=== PATIENT | female | born 1940 | race Caucasian/White ===

== ENCOUNTER 2017-03-12 10:58 | Emergency (ER) | payer MEDICARE ==
[2017-03-12 12:05] LABS: #Basophils 0.1 thou/uL (0.0-0.2); #Eosinphils 0.1 thou/uL (0.0-0.7); #Lymphocytes 1.6 thou/uL (1.20-3.40); #Monocytes 0.9 thou/uL (0.11-0.59); #Neutrophils 5.8 thou/uL (1.40-6.50); %Basophils 0.8 % (0.0-1.0); %Eosinophils 1.3 % (0.0-10.0); %Lymphocytes 18.9 % (21.0-51.0); %Monocytes 10.3 % (0.0-10.0); Macrocytosis SLIGHT = 6-15 cells (100X) (0-5/hpf); Mean Platelet Volume 6.9 fL (7.4-10.4); Red Blood Cell (RBC) Count 4.27 mill/uL (4.20-5.40); White Blood Cell (WBC) Count 8.5 thou/uL (4.8-10.8)
[2017-03-12 12:12] LABS: ALT (SGPT) 13 U/L (8-55); AST (SGOT) 22 U/L (5-34); Alkaline Phosphatase 52 U/L (40-150); Anion Gap 14 mmol/L (10-20); BUN (Urea Nitrogen) 23 mg/dL (9.8-20.1); Bilirubin, Total 0.6 mg/dL (0.2-1.2); CK (CPK) 41 U/L (29-168); Calc. Creatinine Clearance 0 mL/min (70-130); Calcium 9.8 mg/dL (7.8-10.44); Carbon Dioxide 25 mmol/L (23-31); Chloride 104 mmol/L (98-107); Estimated GFR-MDRD 53; Globulin 3.3 g/dL (2.4-3.5); Protein, Total 7.2 g/dL (6.0-8.3)
[2017-03-12 12:15] LABS: Troponin I 0.022 ng/mL (< 0.028)
[2017-03-12] MEDS ORDERED: Pantoprazole 40 MG VIAL ONE ×2 (12:44→12:45)
[2017-03-12] MEDS ORDERED: Fentanyl 100 MCG/2 ML VIAL ONE (13:13)
--- NOTE | 2017-03-12 13:28 | RAD ---
AP VIEW CHEST: Date: 03/12/17 HISTORY: Abdominal pain. FINDINGS: Comparison made to previous exam from 10/17/16. AP view of chest demonstrates a large hiatal hernia. Surgical clips seen in the left axillary region. Cardiomegaly is noted. No evidence of effusions, pneumonia or pneumothorax seen. IMPRESSION: Large hiatal hernia. No acute intrathoracic abnormality seen. POS: [facility]
[2017-03-12] MEDS ORDERED: ISOVUE-370 76%-LOCM 1 ML ONE (13:48)
--- NOTE | 2017-03-12 14:15 | ULT ---
RIGHT UPPER QUADRANT ULTRASOUND: Date: 03/12/17 HISTORY: Abdominal pain. TECHNIQUE: Multiple longitudinal and transverse images of the right upper quadrant of the abdomen obtained using a multihertz curvilinear transducer. Real-time and color flow images obtained. FINDINGS: The liver is unremarkable with no evidence of hepatic parenchymal masses seen. The left hepatic lobe is suboptimally visualized. No evidence of intrahepatic biliary dilatation is seen. Common bile duct is of normal size measuring 4.8 mm. No evidence of intrahepatic biliary dilatation is seen. The gallb ladder contains numerous echogenic foci compatible with extensive cholelithiasis. No definite evidenc e of gallbladder wall thickening is seen. No evidence of pericholecystic fluid is seen. The gallbladd er is not visualized due to overlying bowel gas. The right kidney is of normal contour, although some what small in size measuring 9.2 cm from pole to pole. IMPRESSION: Cholelithiasis. POS: [facility]
--- NOTE | 2017-03-12 14:50 | CT ---
CONTRAST ENHANCED CTA AORTA: Date: 03/12/17 HISTORY: Epigastric pain. History of dementia. FINDINGS: Contrast enhanced CTA of the chest is performed. 2D and 3D reconstructed images performed. Images demonstrate a large hiatal hernia. There is abnormal dilatation of the esophagus with air flui d levels all the way into the upper thoracic esophagus. No definite evidence of mediastinal lymphadenopathy is seen. Coronary artery calcifications seen. Lorne e diffuse patchy air space and ground-glass opacities seen in both upper lobes and some more subtle a reas seen in the lower lobes. This may represent possible pulmonary edema or pneumonia. No evidence of aortic dissections or aneurysms seen. Atherosclerotic calcification of the descending thoracic aorta is seen. ABDOMEN: Atherosclerotic calcifications seen in the right and left renal arteries. There are some calcificatio ns also seen in the SMA and celiac arteries. There is extensive multilevel S-shaped lumbar degenerative changes with multilevel disc desiccation. Multilevel mid and lower lumbar spinal stenosis is seen. IMPRESSION: 1. No evidence of aortic dissection or aneurysms. 2. Large hiatal hernia with abnormally dilated esophagus. 3. Diffuse multilobar areas of air space opacities concerning for possible pneumonia. 4. Coronary artery calcifications. POS: [facility]
[2017-03-12 15:07] LABS: Bilirubin Negative (Negative); Blood, Urine Negative (Negative); Glucose, Urine (Dipstick) Negative (Negative); Ketone, Urine Negative (Negative); Nitrite Negative (Negative); Protein, Urine (Dipstick) Negative (Neg-Trace)
[2017-03-12 15:34] LABS: PTT 32.7 SEC (22.9-36.1); Prothrombin Time 21.7 SEC (12.0-14.7)
[2017-03-12] MEDS ORDERED: Clindamycin 150 MG CAP PO SCH (15:45)
[2017-03-12 18:14] LABS: Troponin I 0.013 ng/mL (< 0.028)
== END 2017-03-12 17:00 | disposition home or self-care (01) ==
LOC: ERS 10:58
DX: K20.9 Esophagitis, unspecified (principal); J69.0 Pneumonitis due to inhalation of food and vomit; E86.0 Dehydration; I10 Essential (primary) hypertension; E03.9 Hypothyroidism, unspecified; G30.9 Alzheimer's disease, unspecified; M81.0 Age-related osteoporosis without current pathological fracture; F41.9 Anxiety disorder, unspecified; F32.9 Major depressive disorder, single episode, unspecified; Z79.899 Other long term (current) drug therapy; Z79.82 Long term (current) use of aspirin; Z79.01 Long term (current) use of anticoagulants
CPT/HCPCS: 36415; 51701; 71010; 71275; 76705; 80053; 81003; 82274; 82550; 82553; 84484; 85025; 85379; 85610; 85730; 93005; 96361; 96374; 96375; A4353; C9113; J3010

== ENCOUNTER 2017-08-12 07:36 | Emergency (ER) | payer MEDICARE ==
[2017-08-12 08:13] LABS: #Basophils 0.1 thou/uL (0.0-0.2); #Eosinphils 0.2 thou/uL (0.0-0.7); #Lymphocytes 1.6 thou/uL (1.20-3.40); #Monocytes 0.9 thou/uL (0.11-0.59); #Neutrophils 4.5 thou/uL (1.40-6.50); %Basophils 0.8 % (0.0-1.0); %Eosinophils 2.2 % (0.0-10.0); %Lymphocytes 22.3 % (21.0-51.0); %Neutrophils 62.8 % (42.0-75.0); Hemoglobin 13.3 g/dL (12.0-16.0); Mean Corpuscular HGB CONC 33.9 g/dL (32.0-36.0); Mean Corpuscular Hemoglobin 34.6 pg (27.0-31.0); Mean Platelet Volume 6.9 fL (7.4-10.4); Platelet Count 183 thou/uL (130-400); Red Blood Cell (RBC) Count 3.83 mill/uL (4.20-5.40); White Blood Cell (WBC) Count 7.1 thou/uL (4.8-10.8)
[2017-08-12 08:19] LABS: INR-International Normal Ratio 1.5; Prothrombin Time 18.2 SEC (12.0-14.7)
[2017-08-12 08:33] LABS: ALT (SGPT) 10 U/L (8-55); AST (SGOT) 21 U/L (5-34); Albumin 3.6 g/dL (3.4-4.8); Alkaline Phosphatase 43 U/L (40-150); Anion Gap 6 mmol/L (10-20); BUN (Urea Nitrogen) 21 mg/dL (9.8-20.1); Bilirubin, Total 0.6 mg/dL (0.2-1.2); Calc. Creatinine Clearance 0 mL/min (70-130); Calcium 9.3 mg/dL (7.8-10.44); Carbon Dioxide 32 mmol/L (23-31); Chloride 106 mmol/L (98-107); Estimated GFR-MDRD 61; Glucose 92 mg/dL (83-110); Potassium 3.9 mmol/L (3.5-5.1); Protein, Total 6.6 g/dL (6.0-8.3); Sodium 140 mmol/L (136-145)
[2017-08-12 08:36] LABS: CKMB 1.1 ng/mL (0-6.6); Troponin I Less than 0.010 ng/mL (< 0.028)
[2017-08-12 08:43] LABS: Bilirubin Negative (Negative); Blood, Urine Negative (Negative); Clarity CLOUDY (Clear); Glucose, Urine (Dipstick) Negative (Negative); Leukocyte Negative (Negative); Nitrite Negative (Negative); Protein, Urine (Dipstick) Negative (Neg-Trace); Specific Gravity, Urine 1.016 (1.002-1.036)
--- NOTE | 2017-08-12 09:39 | RAD ---
PORTABLE UPRIGHT FRONTAL CHEST RADIOGRAPH: DATE: 08/12/17. COMPARISON: 03/12/17. History Syncope, fall, loss of consciousness. FINDINGS: Atherosclerotic calcification and tortuosity of the aorta noted. There is no pneumothorax, pleural f luid, focal consolidation, or alveolar edema. Increased density at the diaphragmatic hiatus suggests a hiatal hernia, not optimally characterized on this exam. There is levoscoliosis at the thoracolumbar junction. IMPRESSION: Chronic findings as above. POS: [facility]
--- NOTE | 2017-08-12 09:43 | CT ---
HEAD CT WITHOUT CONTRAST: DATE: 08/12/17. COMPARISON: 10/17/16. HISTORY: Syncope, fall, head trauma. TECHNIQUE: Serial axial CT imaging at 5 mm intervals from vertex through the skull base without contrast. FINDINGS: There is a focal area of midline frontal scalp swelling with a foal subcutaneous hematoma on image 17 measuring 1.9 cm. Soft tissue swelling extends inferiorly into the supraorbital region on the left. There is partial opacification of posterior ethmoid air cells on the right. Imaged paranasal sinuses /mastoid air cells appear grossly unremarkable otherwise. No displaced calvarial fracture. No intracranial hemorrhage, midline shift, or mass effect. There is diffuse mild cerebral volume los s. There is periventricular hypodensity, evidence of small-vessel disease. IMPRESSION: Frontal scalp swelling consistent with a recent fall and head trauma. No associated fracture or intr acranial hemorrhage. POS: [facility]
== END 2017-08-12 09:14 | disposition home or self-care (01) ==
LOC: ERS 07:36
DX: S00.81XA Abrasion of other part of head, initial encounter (principal); G30.9 Alzheimer's disease, unspecified; F02.80 Dementia in other diseases classified elsewhere, unspecified severity, without behavioral disturbance, psychotic disturbance, mood disturbance, and anxiety; I10 Essential (primary) hypertension; E03.9 Hypothyroidism, unspecified; M81.0 Age-related osteoporosis without current pathological fracture; F41.9 Anxiety disorder, unspecified; F32.9 Major depressive disorder, single episode, unspecified; Z79.82 Long term (current) use of aspirin; Z79.899 Other long term (current) drug therapy; Z79.01 Long term (current) use of anticoagulants; W19.XXXA Unspecified fall, initial encounter
CPT/HCPCS: 36415; 51701; 70450; 71045; 80053; 81003; 82553; 84484; 85025; 85610; 93005; A4353

== ENCOUNTER 2018-03-04 20:39 | Emergency (ER) | payer MEDICARE, SELFPAY ==
[2018-03-04 21:14] LABS: #Basophils 0.1 thou/uL (0.0-0.2); #Eosinphils 0.1 thou/uL (0.0-0.7); #Lymphocytes 1.9 thou/uL (1.20-3.40); #Monocytes 1.1 thou/uL (0.11-0.59); #Neutrophils 8.5 thou/uL (1.40-6.50); %Basophils 0.6 % (0.0-1.0); %Monocytes 9.5 % (0.0-10.0); %Neutrophils 72.9 % (42.0-75.0); Hemoglobin 14.7 g/dL (12.0-16.0); Mean Corpuscular HGB CONC 33.2 g/dL (32.0-36.0); Mean Corpuscular Hemoglobin 34.1 pg (27.0-31.0); Mean Platelet Volume 7.5 fL (7.4-10.4); Platelet Count 204 thou/uL (130-400); RBC Distribution Width 12.3 % (11.5-14.5); White Blood Cell (WBC) Count 11.6 thou/uL (4.8-10.8)
[2018-03-04 21:38] LABS: ALT (SGPT) 17 U/L (8-55); AST (SGOT) 33 U/L (5-34); Albumin 3.8 g/dL (3.4-4.8); Alkaline Phosphatase 47 U/L (40-150); Anion Gap 13 mmol/L (10-20); BUN (Urea Nitrogen) 22 mg/dL (9.8-20.1); Bilirubin, Total 0.4 mg/dL (0.2-1.2); CK (CPK) 49 U/L (29-168); Calc. Creatinine Clearance 0 mL/min (70-130); Calcium 10.1 mg/dL (7.8-10.44); Carbon Dioxide 25 mmol/L (23-31); Chloride 105 mmol/L (98-107); Estimated GFR-MDRD 43; Globulin 3.3 g/dL (2.4-3.5); Glucose 141 mg/dL (83-110); Lipase 19 U/L (8-78); Protein, Total 7.1 g/dL (6.0-8.3); Sodium 139 mmol/L (136-145)
--- NOTE | 2018-03-04 21:50 | RAD ---
RADIOGRAPH CHEST 1 VIEW: Date: 03-04-18 Time: 8:58 P.M. HISTORY: 78-year-old female with chest pain. COMPARISON: 08-12-17 FINDINGS: Cardiomegaly. Large retrocardiac gas-containing mass. Diffusely prominent interstitial markings. No c onsolidation or pneumothorax. No effacement of lateral costophrenic angles. No interval change. IMPRESSION: 1. Large hiatal hernia. 2. Cardiomegaly. MADELIN POS: [facility]
[2018-03-04 22:32] LABS: Bilirubin Negative (Negative); Blood, Urine Negative (Negative); Clarity CLEAR (Clear); Glucose, Urine (Dipstick) Negative (Negative); Leukocyte Negative (Negative); Nitrite Negative (Negative); Protein, Urine (Dipstick) Negative (Neg-Trace); Specific Gravity, Urine 1.019 (1.002-1.036)
--- NOTE | 2018-03-06 14:16 | EKG ---
Test Reason : Blood Pressure : / mmHG Vent. Rate : 072 BPM Atrial Rate : 300 BPM P-R Int : 000 ms QRS Dur : 088 ms QT Int : 406 ms P-R-T Axes : 084 -26 -05 degrees QTc Int : 444 ms Atrial flutter with variable A-V block with premature ventricular or aberrantly conducted complexes Minimal voltage criteria for LVH, may be normal variant Anterior infarct , age undetermined Abnormal ECG Confirmed by ZOYA VELASQUEZ, ELVA (12), editorial intern MATILDE HERRERA ([id number]) on 03/06/2018 2:15:48 PM Referred By: Confirmed By:ELVA KENNY MD
== END 2018-03-04 22:54 ==
LOC: ERS 20:39
DX: K21.9 Gastro-esophageal reflux disease without esophagitis (principal); I10 Essential (primary) hypertension; G30.9 Alzheimer's disease, unspecified; E03.9 Hypothyroidism, unspecified; M81.0 Age-related osteoporosis without current pathological fracture; F41.9 Anxiety disorder, unspecified; F32.9 Major depressive disorder, single episode, unspecified; Z79.82 Long term (current) use of aspirin; Z79.899 Other long term (current) drug therapy; Z79.01 Long term (current) use of anticoagulants
CPT/HCPCS: 36415; 51701; 71045; 80053; 81003; 82550; 83690; 83880; 84484; 85025; 87086; 93005; 96360; A4353

== ENCOUNTER 2018-08-16 12:09 | Inpatient (IN) | payer MEDICARE ==
--- NOTE | 2018-08-16 12:38 | RAD ---
EXAM: Single view of the chest HISTORY: Dyspnea COMPARISON: 03/04/2018 FINDINGS: Single view of the chest shows an enlarged but stable cardiomediastinal silhouette. Increa sed interstitial markings are present. There may be superimposed airspace opacities scattered throughout the lungs. No pleural effusion is seen. Degenerative changes are seen in the spine. IMPRESSION: Multifocal infiltrates
[2018-08-16] MEDS ORDERED: Gentamicin Sulfate 340 MG in Sodium Chloride 0.9% 100 ML IVPB SCH (13:15)
[2018-08-16] MEDS ORDERED: Piperacillin/Tazobactam 4.5 GM VIAL ONE (13:30)
[2018-08-16 13:36] LABS: Hemoglobin 10.4 g/dL (12.0-16.0); Mean Corpuscular HGB CONC 32.1 g/dL (32.0-36.0); Mean Corpuscular Hemoglobin 34.6 pg (27.0-31.0); Mean Platelet Volume 7.5 fL (7.4-10.4); Platelet Count 400 thou/uL (130-400); RBC Distribution Width 13.9 % (11.5-14.5); Red Blood Cell (RBC) Count 3.01 mill/uL (4.20-5.40); White Blood Cell (WBC) Count 24.1 thou/uL (4.8-10.8)
[2018-08-16 13:52] LABS: Band 7 % (5-11); Lymphocytes 15 % (21-51); MDiff Complete? YES; Macrocytosis SLIGHT = 6-15 cells (100X) (0-5/hpf); Neutrophil 78 % (42-75); Ovalocytes SLIGHT = 2-5 cells (100X) (0-1/hpf); Platelet Morphology Comment Appears Adequate; Polychromasia MODERATE = 3-4 cells (100X) (0-2/hpf)
[2018-08-16 14:04] LABS: Bilirubin Small (Negative); Blood, Urine Small (Negative); Clarity TURBID (Clear); Glucose, Urine (Dipstick) Negative (Negative); Leukocyte Small (Negative); Protein, Urine (Dipstick) 30 mg/dL (Neg-Trace); Specific Gravity, Urine 1.023 (1.002-1.036)
[2018-08-16 14:06] LABS: ALT (SGPT) 29 U/L (8-55); AST (SGOT) 87 U/L (5-34); Albumin 2.8 g/dL (3.4-4.8); Alkaline Phosphatase 61 U/L (40-150); Anion Gap 16 mmol/L (10-20); BUN (Urea Nitrogen) 31 mg/dL (9.8-20.1); Bilirubin, Total 2.5 mg/dL (0.2-1.2); Calc. Creatinine Clearance 0 mL/min (70-130); Calcium 8.3 mg/dL (7.8-10.44); Carbon Dioxide 18 mmol/L (23-31); Chloride 108 mmol/L (98-107); Estimated GFR-MDRD 63; Globulin 2.9 g/dL (2.4-3.5); Glucose 135 mg/dL (83-110); Potassium 4.2 mmol/L (3.5-5.1); Protein, Total 5.7 g/dL (6.0-8.3); Sodium 138 mmol/L (136-145)
[2018-08-16 14:23] LABS: Nitrite Unable to Interpret (Negative)
[2018-08-16 14:27] LABS: RBC/HPF 0-3 HPF (0-3)
[2018-08-16 14:28] LABS: Bacteria/HPF 4+ HPF (None Seen); Hyaline Casts/LPF 0-3 HYALINE CAST LPF (0-3 Hyaline)
[2018-08-16 15:17] LABS: PTT 104.2 SEC (22.9-36.1); Prothrombin Time 88.4 SEC (12.0-14.7)
[2018-08-16 15:26] LABS: INR-International Normal Ratio 11.5
[2018-08-16] MEDS ORDERED: Sodium Chloride 0.9% 1,000 ML IV SCH (15:46)
[2018-08-16] MEDS ORDERED: Ondansetron PF 4 MG/2 ML Vial IVP PRN (15:46)
[2018-08-16] MEDS ORDERED: Ondansetron ODT 4 MG TAB SL PRN (15:46)
[2018-08-16] MEDS ORDERED: HYDROcodone/Acetaminophen 5/325 mg Tablet PO PRN ×2 (15:46)
[2018-08-16 16:02] VITALS: BMI 22.8
[2018-08-16] MEDS ORDERED: Furosemide 40 MG/4 ML VIAL SLOW IVP SCH (16:30)
[2018-08-16 17:45] LABS: Lactic Acid 2.5 mmol/L (0.5-2.2)
[2018-08-16 17:51] LABS: Actual Bicarbonate (HCO3a) 17.6 mEq/L (22-28); Analyzer IN Cardio OR; Base Excess (BEa) -4.4 mEq/L (-2.0 to +3.0); Calcium, Ionized 1.13 mmol/L (1.12-1.30); Carboxyhemoglobin (COHb) 1.3 gm% (0.0-3.0); Hemoglobin (Hb) 11.6 g/dL (12.0-16.0); O2 Tension (PaO2) 160.1 mmHg (> 60.0); Potassium - ABG Lab 4.25 mmol/L (3.70-5.30); pH, Arterial 7.48 (7.35-7.45)
[2018-08-16 17:52] LABS: CO2 Tension 23.9 mmHg (35.0-45.0)
[2018-08-16 17:53] LABS: ALV-art Gradient 523.025 (0-20); Puncture Site LR
[2018-08-16] MEDS ORDERED: Piperacillin/Tazobactam 4.5 GM in Sodium Chloride 0.9% 100 ML IVPB SCH ×2 (18:00→19:00)
[2018-08-16] MEDS ORDERED: Sodium Chloride 0.45% 1,000 ML IV SCH (18:45)
[2018-08-16] MEDS ORDERED: Phytonadione 10 MG/ML AMP IM SCH (18:45)
[2018-08-16] MEDS ORDERED: Cefepime 1 GM in Sodium Chloride 0.9% 100 ML IVPB SCH (20:00)
[2018-08-16] MEDS ORDERED: Morphine 4 MG/ML VIAL SLOW IVP PRN (20:14)
[2018-08-16] MEDS ORDERED: diphenhydrAMINE 50 MG/ML VIAL IVP PRN (20:14)
[2018-08-16] MEDS ORDERED: Vancomycin HCl 1 GM in Premix Bag 1 BAG IVPB SCH (21:00)
--- NOTE | 2018-08-16 23:57 | CON ---
DATE OF CONSULTATION: 08/16/2018 INDICATION FOR CONSULTATION: This is an 78-year-old female who was admitted after having increasing shortness of breath. She is admitted with a diagnosis of pneumonia. She has multiple areas of infiltrates. She also had an elevated BNP compatible with most likely congestive heart failure. She did undergo an echocardiogram back in 2017, which showed severe aortic valve stenosis with a gradient across the valve of 100 mmHg. She has been remained apparently relatively stable, has not had any significant problems until she became short of breath at this time and most likely has a combination of pneumonia plus congestive heart failure. She also has a history in the past of some diastolic dysfunction and most likely has combined systolic and diastolic heart failure with elevated PA pressures also in the past and pulmonary hypertension. She is pretty much wheelchair bound and does not do any significant activity and most likely has remained relatively stable. At this time, she appears to be pale. She is mildly diaphoretic. Her blood pressure is slightly hypotensive. She was given diuretics in the emergency room. She appeared also to be somewhat acidotic. Looking at the laboratory reports, it appears that she has elevated liver function studies, most likely due to stasis associated with congestive heart failure. Also, she has been on Coumadin for her chronic atrial fibrillation and her INR was significantly elevated. She is having further problems with difficulty breathing. We will ask for the stat echocardiogram for further evaluation at this time. PAST MEDICAL HISTORY: Significant for dementia. She has Alzheimer disease, hypertension, hypothyroidism. She has had a history of pericarditis in the past. She has osteoporosis. She has severe aortic valve stenosis. She has anxiety and depression. SOCIAL HISTORY: There is history of alcohol or tobacco abuse. She has apparently no family member. She is taken care of by a friend, but she is actually in the jail. She has no history of tobacco abuse. ALLERGIES: SHE IS ALLERGIC TO MORPHINE APPARENTLY. PRESENT MEDICATIONS: Included alendronate, aspirin, donepezil, fenofibrate, gabapentin, levothyroxine, magnesium, oxybutynin, trazodone, metoprolol 25 mg half a tab b.i.d., Namenda one tab b.i.d. She has also been on Coumadin. REVIEW OF SYSTEMS: Not obtainable. PHYSICAL EXAMINATION: GENERAL: Reveals an elderly, very ill-appearing female who is tachypneic. VITAL SIGNS: Her blood pressure is 108/80, heart rate 103, appears to be irregular, respiratory rate is 18, O2 saturation is 100% on a 2 L of oxygen. She is afebrile. HEENT: Shows head to be normocephalic. She does appear to be pale. I cannot hear carotid bruits. CHEST: She has bilateral diffuse rales. CARDIOVASCULAR: She has tachycardia, somewhat irregular rhythm. She has a very harsh systolic murmur of the aortic area compatible with aortic valve stenosis. ABDOMEN: Obese with positive bowel sounds are present. I cannot elicit any tenderness. EXTREMITIES: Showed 2+ lower extremity edema. I cannot palpate pedal pulses. NEUROLOGICAL: The patient obviously is confused, demented and does not give much information. She denies any chest pain, but does say she is short of breath. She has no pain otherwise either. SKIN: Her skin is slightly clammy at this time. LABORATORY DATA: Shows a WBC of 24.1, hemoglobin was 10.4, platelet count of 400,000, hematocrit was 32.4. Chemistry, she has a chloride of 108. Sodium was 138, potassium 4.2, creatinine 0.86 with a BUN of 31. Lactic acid is 2.9. AST was 87. Her BNP was 2755. Urinalysis shows 4+ bacteria in the urine. IMPRESSION: 1. Congestive heart failure with superimposed pneumonia. She has been placed on antibiotics. She has also been given diuretics in the emergency room. We are uncertain of the urine output. We will need to adjust that. She does appear to be dehydrated at this time also despite having an elevated BNP. She most likely has decreased cardiac output due to aortic valve stenosis. We will obtain a stat echocardiogram. 2. History of aortic valve stenosis. We will repeat the echocardiogram. She is not a candidate at this time to undergo any interventions. 3. History of hypertension. This is obviously stable at this time. 4. What appears to be urinary tract infection. She has been placed on antibiotics. Renal function still remains normal. 5. Pneumonia. She may need to be seen by the water mechanic for assistance into the care or with Infectious Disease. At this time, this is a very ill-appearing female who may need to be transferred to the intensive care unit for further evaluation and treatment for close observation and medical management. She is apparently a do not resuscitate patient. We will be more than happy to continue to follow the patient with you and further recommendations will depend on the results of the echocardiogram and how she progresses with diuretics. Job ID: [id number]
--- NOTE | 2018-08-17 00:45 | HP ---
CHIEF COMPLAINT: Shortness of breath, not doing well. HISTORY OF PRESENT ILLNESS: Ms. Goldberg is an 78-year-old female with past medical history of chronic atrial fibrillation, dementia, hypertension, hypothyroidism, started having breathing problems today. She was in obvious respiratory distress at the senior care. The patient also had elevated PT/INR. This was reported a day before, but according to the senior care staff, she was doing well until this morning. She did not complain of any chest pain, only complained of shortness of breath. She did not have any fever either. No nausea or vomiting. The patient was transferred to the emergency room, where she was evaluated and found to have sepsis with possible bilateral pneumonia. She was given vancomycin, Zosyn, and gentamicin. After admission to the floor, the patient became more hypoxic and more tachypneic. She was given Lasix for suspected CHF and she was put on Ventimask on the floor. The patient also has atrial fibrillation. Her rate is around 100 to 110 and Cardiology is being consulted as well. PAST MEDICAL HISTORY: 1. Dementia. 2. Hypertension. 3. Hypothyroidism. 4. Chronic atrial fibrillation. 5. History of rectal prolapse. 6. Hyperlipidemia. 7. History of pericarditis. 8. History of pneumonia. 9. Severe aortic stenosis. 10. Pulmonary hypertension. 11. Echo done in 2017. PAST SURGICAL HISTORY: Nothing significant. CURRENT MEDICATIONS: The patient is on; 1. Aspirin 81 mg daily. 2. Aricept 10 mg daily. 3. Fenofibrate 48 mg daily. 4. Gabapentin 300 b.i.d. 5. Levothyroxine 112 mcg daily. 6. Oxybutynin chloride 5 mg b.i.d. 7. Trazodone 25 b.i.d. 8. Metoprolol 12.5 b.i.d. 9. Namenda 10 mg b.i.d. 10. She was on Coumadin 5 mg daily, which is on hold. ALLERGIES: MORPHINE. FAMILY HISTORY: Nothing contributory. SOCIAL HISTORY: Recently lives in a senior care. No history of smoking. No history of alcohol. Has no family, just has one sister who also lives in the senior care. REVIEW OF SYSTEMS: CARDIOVASCULAR: No chest pain. No shortness of breath. RESPIRATORY: No cough or fever. GASTROINTESTINAL: No nausea or vomiting. No abdominal pain. CENTRAL NERVOUS SYSTEM: No headache or dizziness. PHYSICAL EXAMINATION: GENERAL: The patient is awake, not very alert, in no obvious respiratory distress. VITAL SIGNS: Temperature 98, pulse 103, respirations 26, blood pressure 108/80. HEENT: Head is normocephalic and atraumatic. Pupils are equal and reactive. Nasopharynx is pale and dry. Hard and soft palate, no lesions. SKIN: Turgor decreased. NECK: Supple. No JVD. LUNGS: Crackles present bilaterally. No wheezing. HEART: S1 and S2. Regular. ABDOMEN: Soft. No distention. No tenderness. Normal bowel sounds present. RECTAL: Deferred. CENTRAL NERVOUS SYSTEM: No focal deficits. EXTREMITIES: 2+ edema. LABORATORY DATA: CBC shows WBC 24,000, hemoglobin 10, hematocrit 32, platelets 400. Metabolic panel, sodium 138, potassium 4.2, chloride 108, CO2 of 18, BUN of 31, creatinine 0.9, glucose 135. Lactic acid 3.9. BNP was 2755. ABG showed pH 7.48, pCO2 , saturation 99%. Prothrombin time 88, . Urinalysis, urine WBC 7 to 10, bacteria 4+. Chest x-ray shows multifocal infiltrates. EKG shows atrial fibrillation, heart rate of 112. ASSESSMENT: 1. Possible pneumonia with leukocytosis and sepsis. 2. Congestive heart failure. 3. Acute respiratory failure secondary to #1 and #2. 4. Supratherapeutic PT/INR. 5. Severe aortic stenosis. 6. Pulmonary hypertension. 7. Chronic atrial fibrillation. 8. Hypothyroidism. 9. Dementia. PLAN: 1. Vital signs q.4 hours. Activity as tolerated. 2. We will give a dose of Lasix 40. 3. Diet, n.p.o. 4. Zosyn 4.5 g IV piggyback q.6 hours. 5. Cefepime 1 g IV piggyback q.6 hours. 6. The patient is DNR. Her condition is very critical and her prognosis is very poor. Her condition is discussed with her POA, who is a family friend. If the family friend and the POA wants aggressive care, she will be moved to [facility]. Job ID: [id number]
[2018-08-17] MEDS ORDERED: Vancomycin HCl 1 GM in Premix Bag 1 BAG IVPB SCH (02:00)
[2018-08-17 06:12] LABS: PTT 102.1 SEC (22.9-36.1); Prothrombin Time 75.2 SEC (12.0-14.7)
[2018-08-17 06:14] LABS: INR-International Normal Ratio 9.4
[2018-08-17 06:30] LABS: ALT (SGPT) 91 U/L (8-55); AST (SGOT) 320 U/L (5-34); Albumin 2.9 g/dL (3.4-4.8); Alkaline Phosphatase 75 U/L (40-150); Anion Gap 17 mmol/L (10-20); BUN (Urea Nitrogen) 32 mg/dL (9.8-20.1); Bilirubin, Total 1.9 mg/dL (0.2-1.2); Calc. Creatinine Clearance 49 mL/min (70-130); Calcium 9.1 mg/dL (7.8-10.44); Carbon Dioxide 19 mmol/L (23-31); Chloride 107 mmol/L (98-107); Estimated GFR-MDRD 63; Globulin 3.2 g/dL (2.4-3.5); Glucose 96 mg/dL (83-110); Potassium 3.8 mmol/L (3.5-5.1); Protein, Total 6.1 g/dL (6.0-8.3); Sodium 139 mmol/L (136-145)
[2018-08-17 06:42] LABS: Band 4 % (5-11); Hemoglobin 10.2 g/dL (12.0-16.0); Lymphocytes 19 % (21-51); MDiff Complete? YES; Mean Corpuscular HGB CONC 31.1 g/dL (32.0-36.0); Mean Corpuscular Hemoglobin 33.9 pg (27.0-31.0); Mean Platelet Volume 7.7 fL (7.4-10.4); Metamyelocyte 1 % (0-0); Neutrophil 76 % (42-75); Platelet Count 443 thou/uL (130-400); Platelet Morphology Comment Appears Increased; RBC Distribution Width 14.3 % (11.5-14.5); White Blood Cell (WBC) Count 25.5 thou/uL (4.8-10.8)
--- NOTE | 2018-08-17 09:10 | PDOC.CTH ---
Cardiology Progress Note - Subjective The pt seen and examined. No overnight events. No cardiac complaints. - Objective Vital Signs Temp Pulse Resp BP Pulse Ox 08/17/18 08:15 16 97 08/17/18 07:50 98.1 F 120 H 16 113/69 100 08/17/18 04:00 98.6 F 118 H 25 H 103/56 L 100 08/16/18 22:30 99 Weight 132 lb 14.4 oz 08/16/18 08/17/18 08/18/18 06:59 06:59 06:59 Intake Total 0 Output Total 1050 Balance -1050 - Physical Examination General/Neuro: other: (self and place, but no situation) Lungs: other: (diminished at bases) Heart: other: (irregular) Abdomen: soft Extremities: other: (2+ pitting BLE edema) - Telemetry Telemetry Rhythm: Afib - Labs Result Diagrams: 08/17/18 05:05 08/17/18 05:05 - Assessment/Plan 1. 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 Bilat PNA - 3. Chronic Afib - HR has been 110-120s; start Digoxin; holding bblocker for now due to hypotension 4. HTN - slightly hypotensive without any BP med 5. UTI - 6. Severe with valve area <0.3 sq cm and peak gradient >120mmHG 7. Alzheimer disease MAR reviewed <addendum> After discussed with Dr Scott, digoxin will be started for Afib with RVR. Pt. seen and eval. by me. I agree with the A/P by the TOOL DESIGN ENGINEER. She looks better today. She is not a candidate for cardiac intervention due to multiple reasons. Treat supportively. Mild diuresis. gjmays Review of Systems - Review of Systems Constitutional: reports: no symptoms reported EENTM: reports: no symptoms reported Respiratory: reports: no symptoms reported Cardiac (ROS): reports: no symptoms reported ABD/GI: reports: no symptoms reported
[2018-08-17] MEDS ORDERED: Digoxin 0.5 MG/2 ML AMP SLOW IVP SCH ×2 (09:30→14:30)
[2018-08-17] MEDS ORDERED: Furosemide 40 MG/4 ML VIAL SLOW IVP SCH ×2 (09:30→14:30)
[2018-08-17] MEDS ORDERED: Piperacillin/Tazobactam 4.5 GM in Sodium Chloride 0.9% 100 ML IVPB SCH (15:00)
[2018-08-17] MEDS: Cefepime 1 GM in Sodium Chloride 0.9% 100 ML IVPB SCH (15:49)
[2018-08-17] MEDS: Piperacillin/Tazobactam 3.375 GM in Sodium Chloride 0.9% 100 ML IVPB SCH ×2 (15:49→19:30)
--- NOTE | 2018-08-17 17:12 | CON ---
DATE OF CONSULTATION: 08/17/2018 REASON FOR CONSULTATION: Possible pneumonia. HISTORY OF PRESENT ILLNESS: An 78-year-old [facility] resident with a history of dementia, severe aortic stenosis, which has not been repaired, who developed sudden onset of dyspnea at the [facility] with tachypnea. No headaches, fever, vomiting, aspiration, abdominal pain, diarrhea, or bleeding reported by the nursing staff. She was admitted and started on broad-spectrum coverage. Given Lasix for suspected CHF. Cardiology consultation obtained. Currently, she is a little better, but still a bit tachypneic and denies headaches. No skin symptoms. Coughing sometimes, but no sputum production. No bleeding. No abdominal pain and voiding with an indwelling De León catheter. PAST MEDICAL HISTORY: Dementia, hypertension, hypothyroidism, atrial fibrillation, hyperlipidemia, history of pericarditis, severe aortic stenosis, and pulmonary hypertension. PAST SURGICAL HISTORY: Noncontributory. ALLERGIES: MORPHINE. FAMILY HISTORY: Noncontributory. SOCIAL HISTORY: Lives in [facility]. Never smoker. CURRENT MEDICATIONS: 1. Inhalers. 2. Cefepime. 3. Digoxin. 4. Zosyn. 5. She was on Coumadin as well. PHYSICAL EXAMINATION: VITAL SIGNS: T-max 98.9, blood pressure 106/75, pulse 119, respirations 16 to 24, and O2 saturation 99. SKIN: Peripheral IV access. De León catheter. HEENT: Ocular movements conjugate. Oral cavity somewhat dry. Still few teeth in place with the expected decay. NECK: Supple. Some jugular vein distention. No thyromegaly. LUNGS: With inspiratory crackles at the bases. HEART: S1 and S2 with a quite loud harsh systolic murmur at the base of the heart, both sides of the sternal border. ABDOMEN: Soft, not distended or tender. No ascites. : No bladder distention. EXTREMITIES: No joint inflammatory activity. She has deformity in the joints, particularly in the left knee. Pulses, 1+ in dorsalis pedis. NEUROLOGIC: She is able to move extremities on command, but is diffusely weak. She is awake. She knew she was in the hospital, but thought she was in [place], could not tell me the date and her recollection is very limited. LABORATORY DATA: White cell count 24,000 and 25,000, hemoglobin 10, MCV 108, platelets 400, and 78% neutrophils. INR 9.4. A pH of 7.48 and pCO2 of 23. Sodium 138, creatinine 0.86, bilirubin 2.5, and AST 87. BNP 2700. Albumin 2.8. Urinalysis with 4 to 6 wbc's. ASSESSMENT: 1. Severe aortic stenosis. 2. Sudden onset of dyspnea with diffuse pulmonary infiltrates. 3. Excessive anticoagulation on Coumadin for management of atrial fibrillation. 4. Leukocytosis. DISCUSSION: The most likely scenario is pulmonary edema associated with severe plus severe mitral regurgitation and pulmonary hypertension. She may have pulmonary hemorrhage as well associated with excessive anticoagulation. An infectious process is less likely. Recommend continuation of management for CHF. Consider discontinuing antimicrobial therapy once the final results of blood cultures are negative. Job ID: [id number]
[2018-08-17] MEDS: Digoxin 0.5 MG/2 ML AMP SLOW IVP SCH (20:51)
[2018-08-18] MEDS: Piperacillin/Tazobactam 3.375 GM in Sodium Chloride 0.9% 100 ML IVPB SCH ×4 (02:35→20:57)
[2018-08-18] MEDS: Digoxin 0.5 MG/2 ML AMP SLOW IVP SCH (02:36)
[2018-08-18] MEDS: Cefepime 1 GM in Sodium Chloride 0.9% 100 ML IVPB SCH ×2 (04:42→16:37)
[2018-08-18 05:44] LABS: Anion Gap 12 mmol/L (10-20); BUN (Urea Nitrogen) 25 mg/dL (9.8-20.1); Calc. Creatinine Clearance 51 mL/min (70-130); Calcium 8.5 mg/dL (7.8-10.44); Carbon Dioxide 24 mmol/L (23-31); Chloride 109 mmol/L (98-107); Estimated GFR-MDRD 66; Glucose 89 mg/dL (83-110); Potassium 3.4 mmol/L (3.5-5.1); Sodium 142 mmol/L (136-145)
[2018-08-18] MEDS: Digoxin 0.125 MG TAB PO SCH (09:14)
[2018-08-18] MEDS ORDERED: Furosemide 40 MG/4 ML VIAL SLOW IVP SCH (17:30)
[2018-08-18] MEDS ORDERED: Phytonadione 10 MG/ML AMP SC SCH (17:45)
[2018-08-19] MEDS: Piperacillin/Tazobactam 3.375 GM in Sodium Chloride 0.9% 100 ML IVPB SCH ×4 (02:05→21:43)
[2018-08-19 04:37] LABS: INR-International Normal Ratio 3.3; Prothrombin Time 33.6 SEC (12.0-14.7)
[2018-08-19] MEDS: Cefepime 1 GM in Sodium Chloride 0.9% 100 ML IVPB SCH ×2 (04:48→15:32)
[2018-08-19] MEDS: Levothyroxine Sodium 88 MCG TAB PO SCH (05:15)
[2018-08-19] MEDS: Digoxin 0.125 MG TAB PO SCH (09:05)
[2018-08-19] MEDS: Magnesium Oxide 400 MG TAB PO SCH (09:07)
[2018-08-19] MEDS ORDERED: Furosemide 40 MG/4 ML VIAL SLOW IVP SCH (15:00)
[2018-08-19] MEDS: Potassium Chloride 20 MEQ TAB PO SCH ×2 (15:32→21:43)
[2018-08-20] MEDS: Piperacillin/Tazobactam 3.375 GM in Sodium Chloride 0.9% 100 ML IVPB SCH ×4 (02:06→21:38)
[2018-08-20] MEDS: Cefepime 1 GM in Sodium Chloride 0.9% 100 ML IVPB SCH ×2 (03:54→16:47)
[2018-08-20] MEDS: Levothyroxine Sodium 88 MCG TAB PO SCH (05:43)
[2018-08-20 06:33] LABS: #Basophils 0.1 thou/uL (0.0-0.2); #Eosinphils 0.2 thou/uL (0.0-0.7); #Lymphocytes 2.8 thou/uL (1.20-3.40); #Monocytes 1.1 thou/uL (0.11-0.59); #Neutrophils 9.8 thou/uL (1.40-6.50); %Basophils 0.4 % (0.0-1.0); %Eosinophils 1.6 % (0.0-10.0); %Lymphocytes 19.8 % (21.0-51.0); %Monocytes 7.9 % (0.0-10.0); %Neutrophils 70.3 % (42.0-75.0); Hemoglobin 10.5 g/dL (12.0-16.0); Mean Corpuscular HGB CONC 32.5 g/dL (32.0-36.0); Mean Corpuscular Hemoglobin 34.4 pg (27.0-31.0); Mean Platelet Volume 7.1 fL (7.4-10.4); Platelet Count 401 thou/uL (130-400); RBC Distribution Width 14.2 % (11.5-14.5); Red Blood Cell (RBC) Count 3.04 mill/uL (4.20-5.40); White Blood Cell (WBC) Count 13.9 thou/uL (4.8-10.8)
[2018-08-20 06:38] LABS: INR-International Normal Ratio 1.4; Prothrombin Time 17.5 SEC (12.0-14.7)
[2018-08-20 06:41] LABS: Lactic Acid 1.4 mmol/L (0.5-2.2)
[2018-08-20 06:45] LABS: ALT (SGPT) 49 U/L (8-55); AST (SGOT) 58 U/L (5-34); Alkaline Phosphatase 60 U/L (40-150); Anion Gap 15 mmol/L (10-20); BUN (Urea Nitrogen) 17 mg/dL (9.8-20.1); Bilirubin, Total 2.1 mg/dL (0.2-1.2); Calc. Creatinine Clearance 57 mL/min (70-130); Calcium 8.9 mg/dL (7.8-10.44); Carbon Dioxide 27 mmol/L (23-31); Chloride 101 mmol/L (98-107); Estimated GFR-MDRD 78; Globulin 3.4 g/dL (2.4-3.5); Glucose 88 mg/dL (83-110); Potassium 3.5 mmol/L (3.5-5.1); Protein, Total 6.4 g/dL (6.0-8.3); Sodium 139 mmol/L (136-145)
--- NOTE | 2018-08-20 08:25 | RAD ---
CHEST 1 VIEW: INDICATION: CHF. COMPARISON: Prior exam dated 08/16/2018. FINDINGS: There is cardiomegaly with pulmonary vascular congestion and perihilar airspace opacities that are st able. Small bilateral pleural effusions are stable, left greater than right. IMPRESSION: 1. Stable bilateral airspace opacities. 2. Stable cardiomegaly with small bilateral pleural effusions. POS: [facility]
[2018-08-20] MEDS: Digoxin 0.125 MG TAB PO SCH (08:32)
[2018-08-20] MEDS: Magnesium Oxide 400 MG TAB PO SCH (08:32)
--- NOTE | 2018-08-20 11:59 | PDOC.CTH ---
Cardiology Progress Note - Subjective The pt seen and examined. No overnight events. No cardiac complaints. - Objective Vital Signs Temp Pulse Resp BP Pulse Ox 08/20/18 11:19 76 16 08/20/18 08:32 72 08/20/18 08:02 98 F 68 18 147/64 H 99 08/20/18 07:38 97 08/20/18 07:36 75 18 08/20/18 04:00 98.1 F 88 18 124/79 96 Weight 128 lb 3 oz 08/19/18 08/20/18 08/21/18 06:59 06:59 06:59 Intake Total 910 2690 Output Total 600 3825 Balance 310 -1135 - Physical Examination General/Neuro: other: (A&O to self) Lungs: other: (diminished at bases) Heart: other: (irregular) Abdomen: soft Extremities: other: (1+ pitting BLE edema) - Telemetry Telemetry Rhythm: AFib 90s - Labs Result Diagrams: 08/20/18 05:38 08/20/18 05:38 - Assessment/Plan 1. 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 May start FELICE/ARB when her VS is more stable 2. Bilat PNA - 3. Chronic Afib - well controlled HR with Digoxin; start BBlocker from today for CHF and afib. 4. HTN - will start Coreg 3.125mg BID from today 5. UTI - 6. Severe with valve area <0.3 sq cm and peak gradient >120mmHG - She is not a candidate for cardiac intervention due to multiple reasons 7. Alzheimer disease MAR reviewed * She is not a candidate for cardiac intervention due to multiple reasons. Treat supportively. Pt. seen and eval. by me. She is much improved over admission. I agree with the A/P by the SUPERVISOR CONTACT LENS. CXR has minimal change. Consideration for pulmonary hemorhage. Continue supportive care. Prob. can return to [place] in 1-2 days. gjmays Review of Systems - Review of Systems Constitutional: reports: no symptoms reported EENTM: reports: no symptoms reported Respiratory: reports: no symptoms reported Cardiac (ROS): reports: no symptoms reported ABD/GI: reports: no symptoms reported : reports: no symptoms reported
[2018-08-20] MEDS ORDERED: Furosemide 20 MG TAB PO SCH (12:00)
--- NOTE | 2018-08-20 14:30 | PQF ---
CLINICAL DOCUMENTATION IMPROVEMENT CLARIFICATION FORM: ICD-10 Updated PLEASE DO AN ADDENDUM TO THE PROGRESS NOTE WITH ANY DOCUMENTATION UPDATES OR ADDITIONS AND CARRY THROUGH TO DC SUMMARY. THANK YOU. DATE: 08/20/2018 ATTN: Dr. Scott Please exercise your independent, professional judgment in responding to the clarification form. Clinical indicators are provided on the bottom of this form for your review Please check appropriate box(s) to clarify if the following diagnosis has been ruled in or ruled out: SEPSIS [ ] Ruled in diagnosis [ ] Continue to treat [ ] Resolved [y ] Ruled out diagnosis [ ] Cannot rule out diagnosis [ ] Other diagnosis [ ] Unable to determine In addition, please specify: Present on Admission (POA): [ y] Yes [ ] No [ ] Unable to determine For continuity of documentation, please document condition throughout progress notes and discharge summary. Thank You. CLINICAL INDICATORS - SIGNS / SYMPTOMS / LABS H&P 08/16: Temp 98, pulse 102, resp. 26. BP 108/80 WBC 24 Lactic Acid 3.9 Possible pneumonia with leukocytosis and sepsis 08/17(Chi) The most likely scenario is pulmonary edema associated with severe plus severe mitral regurgitation and pulmonary hypertension. An infectious process is less likely. 08/20 (SERVANDO Manuel) Acute on Chronic combined hf Bilat PNA RISKS: H&P: 78 yo with PMH of chronic a fib, dementia, HTN. CHF. TREATMENT: MAR: Order 08/17: Zosyn 3.375 gm IV MAR: Order 08/17: Maxipime 1 gm IV ID 08/17: Consider discontinuing antimicrobial therapy once the final results of blood cultures are negative. Thank you, Jessenia (This form is maintained as a part of the permanent medical record) 2014 [employer]. All Rights Reserved Jessenia Fang RN, BSN [email or web address] Office: [phone] [facility]
[2018-08-20] MEDS: Carvedilol 3.125 MG TAB PO SCH (16:47)
[2018-08-20] MEDS ORDERED: Potassium Chloride 20 MEQ TAB PO SCH (18:00)
[2018-08-21] MEDS: Piperacillin/Tazobactam 3.375 GM in Sodium Chloride 0.9% 100 ML IVPB SCH ×4 (03:02→21:42)
[2018-08-21] MEDS: Cefepime 1 GM in Sodium Chloride 0.9% 100 ML IVPB SCH ×2 (03:37→16:29)
[2018-08-21] MEDS: Levothyroxine Sodium 88 MCG TAB PO SCH (05:15)
[2018-08-21] MEDS: Digoxin 0.125 MG TAB PO SCH (09:02)
[2018-08-21] MEDS: Magnesium Oxide 400 MG TAB PO SCH (09:02)
[2018-08-21] MEDS: Carvedilol 3.125 MG TAB PO SCH ×2 (09:03→16:29)
[2018-08-21] MEDS: Furosemide 20 MG TAB PO SCH (09:03)
--- NOTE | 2018-08-21 10:48 | PDOC.CTH ---
Cardiology Progress Note - Objective Vital Signs Temp Pulse Resp BP BP Pulse Ox 08/21/18 09:02 70 08/21/18 07:40 98.7 F 74 16 118/65 95 08/21/18 07:29 91 L 08/21/18 07:27 81 16 91 L 08/21/18 03:15 98.1 F 74 20 117/62 96 Weight 128 lb 3 oz 08/20/18 08/21/18 08/22/18 06:59 06:59 06:59 Intake Total 2690 900 Output Total 3825 1025 Balance -1135 -125 - Physical Examination General/Neuro: other: (oriented to self.) Neck: no JVD present Lungs: other: (left basilar rales.wheeze) Heart: other: (irreg/irreg.) Abdomen: NT/ND, soft - Labs Result Diagrams: 08/20/18 05:38 08/20/18 05:38 - Assessment/Plan 1. 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 May start FELICE/ARB when her VS is more stable 2. Bilat PNA - 3. Chronic Afib - well controlled HR with Digoxin; started BBlocker for CHF and afib.rate control. 4. HTN - Coreg 3.125mg BID 5. UTI - 6. Severe with valve area <0.3 sq cm and peak gradient >120mmHG - She is not a candidate for cardiac intervention due to multiple reasons 7. Alzheimer disease MAR reviewed * She is not a candidate for cardiac intervention due to multiple reasons. Treat supportively.
[2018-08-22] MEDS: Piperacillin/Tazobactam 3.375 GM in Sodium Chloride 0.9% 100 ML IVPB SCH ×3 (03:01→15:25)
[2018-08-22] MEDS: Cefepime 1 GM in Sodium Chloride 0.9% 100 ML IVPB SCH (03:45)
[2018-08-22 05:12] LABS: Anion Gap 14 mmol/L (10-20); BUN (Urea Nitrogen) 25 mg/dL (9.8-20.1); Calc. Creatinine Clearance 53 mL/min (70-130); Carbon Dioxide 29 mmol/L (23-31); Chloride 102 mmol/L (98-107); Estimated GFR-MDRD 71; Glucose 127 mg/dL (83-110); Potassium 3.5 mmol/L (3.5-5.1); Sodium 141 mmol/L (136-145)
[2018-08-22 05:18] LABS: Band 1 % (5-11); Hemoglobin 10.8 g/dL (12.0-16.0); Hypochromia SLIGHT = 6-15 cells (100X) (0-5/hpf); Lymphocytes 21 % (21-51); MDiff Complete? YES; Macrocytosis SLIGHT = 6-15 cells (100X) (0-5/hpf); Mean Corpuscular HGB CONC 32.9 g/dL (32.0-36.0); Mean Corpuscular Hemoglobin 35.1 pg (27.0-31.0); Mean Platelet Volume 7.1 fL (7.4-10.4); Monocytes 2 % (0-10); Neutrophil 76 % (42-75); Nucleated RBC 3 % (0); Platelet Count 415 thou/uL (130-400); Platelet Morphology Comment Appears Increased; Polychromasia SLIGHT = 2-3 cells (100X) (0-2/hpf); RBC Distribution Width 14.6 % (11.5-14.5); Red Blood Cell (RBC) Count 3.09 mill/uL (4.20-5.40); White Blood Cell (WBC) Count 15.8 thou/uL (4.8-10.8)
[2018-08-22] MEDS: Levothyroxine Sodium 88 MCG TAB PO SCH (05:23)
[2018-08-22] MEDS: Furosemide 20 MG TAB PO SCH (09:37)
[2018-08-22] MEDS: Digoxin 0.125 MG TAB PO SCH (09:37)
[2018-08-22] MEDS: Magnesium Oxide 400 MG TAB PO SCH (09:37)
[2018-08-22] MEDS: Carvedilol 3.125 MG TAB PO SCH ×2 (09:37→16:45)
--- NOTE | 2018-08-22 13:27 | PDOC.CTH ---
Cardiology Progress Note - Subjective The pt seen and examined. No overnight events. No cardiac complaints. - Objective Vital Signs Temp Pulse Resp BP Pulse Ox 08/22/18 10:38 61 16 95 08/22/18 09:37 69 08/22/18 08:15 97.8 F 69 16 141/65 H 100 08/22/18 07:48 98 08/22/18 07:47 58 L 20 98 08/22/18 04:00 98.1 F 64 13 122/62 96 Weight 127 lb 08/21/18 08/22/18 08/23/18 06:59 06:59 06:59 Intake Total 900 1350 Output Total 1025 1200 Balance -125 150 - Labs Result Diagrams: 08/22/18 04:40 08/22/18 04:40 - Assessment/Plan 1. 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 May start FELICE/ARB when her VS is more stable 2. Bilat PNA - 3. Chronic Afib - well controlled HR with Digoxin and Coreg 3.125mg BID; Not on OAC due to high risk of fall. Will resume ASA 81mg QD; 4. HTN - Coreg 3.125mg BID 5. UTI - 6. Severe with valve area <0.3 sq cm and peak gradient >120mmHG - She is not a candidate for cardiac intervention due to multiple reasons 7. Alzheimer disease MAR reviewed * She is not a candidate for cardiac intervention due to multiple reasons. Treat supportively. Pt. seen and eval. by me. I agree with the A/P by the MACHINIST TOOL AND DIE. Chest clear. irreg/ irreg. No edema. No further cardiac workup at this time. [email or web address] Review of Systems - Review of Systems Constitutional: reports: no symptoms reported EENTM: reports: no symptoms reported Respiratory: reports: no symptoms reported Cardiac (ROS): reports: no symptoms reported ABD/GI: reports: no symptoms reported : reports: no symptoms reported
[2018-08-23] MEDS: Levothyroxine Sodium 88 MCG TAB PO SCH (05:49)
--- NOTE | 2018-08-23 10:00 | PDOC.CTH ---
Cardiology Progress Note - Subjective The pt seen and examined. No overnight events. No cardiac complaints. She does not have a good appetite. - Objective Vital Signs Temp Pulse Resp BP Pulse Ox 08/23/18 07:25 97.8 F 66 12 140/67 100 08/23/18 07:23 98 08/23/18 07:22 68 16 92 L 08/23/18 03:08 98.1 F 89 21 H 135/68 08/23/18 00:00 20 Weight 124 lb 1.6 oz 08/22/18 08/23/18 08/24/18 06:59 06:59 06:59 Intake Total 1350 570 Output Total 1200 1400 Balance 150 -830 - Physical Examination General/Neuro: other: (A&O to self) Neck: no JVD present Lungs: other: (diminished at bases) Heart: other: (irregular) Abdomen: soft Extremities: other: (No edema) - Telemetry Telemetry Rhythm: Afib with PVCs - Labs Result Diagrams: 08/22/18 04:40 08/22/18 04:40 - Assessment/Plan 1. 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 Will start Lisinopril 2.5mg qd from today. 2. Bilat PNA - 3. Chronic Afib - well controlled HR with Digoxin and Coreg 3.125mg BID; Not on OAC due to high risk of fall. On ASA 81mg QD; 4. HTN - On coreg 3.125mg BID and Lisinopril 2.5mg qd 5. UTI - 6. Severe with valve area <0.3 sq cm and peak gradient >120mmHG - She is not a candidate for cardiac intervention due to multiple reasons 7. Alzheimer disease MAR reviewed * She is not a candidate for cardiac intervention due to multiple reasons. Treat supportively. Pt. seen and eval. by me.I agree with the A/P by the HOME ASSESSMENT NURSE. The best option is to control her volume status and HTN. We will need to be careful not to allow her to become too hypotensive with the . From my perspective she can be transferred back to the [facility] at any time. Poor prognosis with severe . I will sign off. [email or web address] Review of Systems - Review of Systems Constitutional: reports: no symptoms reported EENTM: reports: no symptoms reported Respiratory: reports: no symptoms reported Cardiac (ROS): reports: no symptoms reported ABD/GI: reports: no symptoms reported
[2018-08-23] MEDS: Aspirin 81 mg Enteric Coated Tablet PO SCH (10:08)
[2018-08-23] MEDS: Carvedilol 3.125 MG TAB PO SCH ×2 (10:08→17:05)
[2018-08-23] MEDS: Magnesium Oxide 400 MG TAB PO SCH (10:08)
[2018-08-23] MEDS: Digoxin 0.125 MG TAB PO SCH (10:08)
[2018-08-23] MEDS: Furosemide 20 MG TAB PO SCH (10:09)
[2018-08-23] MEDS ORDERED: Lisinopril 2.5 MG TAB PO SCH ×2 (10:15→10:30)
[2018-08-23] MEDS ORDERED: Amoxicillin/Potassium Clav 875 MG TAB PO SCH (10:15)
[2018-08-23] MEDS: Amoxicillin/Potassium Clav 875 MG TAB PO SCH (20:54)
[2018-08-24] MEDS: Levothyroxine Sodium 88 MCG TAB PO SCH (06:31)
[2018-08-24 07:34] VITALS: BP 154/72; TEMP 98.6
[2018-08-24] MEDS: Carvedilol 3.125 MG TAB PO SCH (08:30)
[2018-08-24] MEDS: Digoxin 0.125 MG TAB PO SCH (08:31)
[2018-08-24] MEDS: Aspirin 81 mg Enteric Coated Tablet PO SCH (08:31)
[2018-08-24] MEDS: Amoxicillin/Potassium Clav 875 MG TAB PO SCH (08:31)
[2018-08-24] MEDS: Magnesium Oxide 400 MG TAB PO SCH (08:32)
[2018-08-24] MEDS: Furosemide 20 MG TAB PO SCH (08:32)
[2018-08-24] MEDS ORDERED: Lisinopril 2.5 MG TAB PO SCH (09:00)
== END 2018-08-24 12:10 | DRG 291 ==
LOC: ERS 12:09 → 2NO 14:04
PROVIDERS: ADMIT Internal Medicine; ATTEND Internal Medicine
DX: I11.0 Hypertensive heart disease with heart failure (principal); J18.9 Pneumonia, unspecified organism; J96.00 Acute respiratory failure, unspecified whether with hypoxia or hypercapnia; N39.0 Urinary tract infection, site not specified; R04.89 Hemorrhage from other sites in respiratory passages; I50.43 Acute on chronic combined systolic (congestive) and diastolic (congestive) heart failure; Z66 Do not resuscitate; I48.2 Chronic atrial fibrillation; G30.9 Alzheimer's disease, unspecified; F02.80 Dementia in other diseases classified elsewhere, unspecified severity, without behavioral disturbance, psychotic disturbance, mood disturbance, and anxiety; E03.9 Hypothyroidism, unspecified; M81.0 Age-related osteoporosis without current pathological fracture; F41.9 Anxiety disorder, unspecified; F32.9 Major depressive disorder, single episode, unspecified; E78.5 Hyperlipidemia, unspecified; R79.1 Abnormal coagulation profile; I35.0 Nonrheumatic aortic (valve) stenosis; I27.20 Pulmonary hypertension, unspecified; I95.9 Hypotension, unspecified; Z99.3 Dependence on wheelchair; Z88.5 Allergy status to narcotic agent; Z87.01 Personal history of pneumonia (recurrent); Z79.82 Long term (current) use of aspirin; Z79.899 Other long term (current) drug therapy; Z79.01 Long term (current) use of anticoagulants
CPT/HCPCS: 36415; 51701; 71045; 80048; 80053; 81003; 81015; 82805; 83605; 83880; 84145; 84443; 85025; 85610; 85730; 87040; 87086; 93005; 93306; 94640; 96361; 96365; 96367; A4353; J0692; J1160; J1200; J1580; J1940; J2543; J3370; J3430; J3490; J7620